=== PATIENT | male | born 1975 | race Two or more races ===

== ENCOUNTER 2019-12-30 18:26 | Emergency (ER) | payer OTHER ==
[2019-12-30] MEDS ORDERED: ASPIRIN 81 MG TABLET, CHEWABLE PO ONE (19:15)
--- NOTE | 2019-12-30 19:18 | ER Document Report ---
ED Medical Screen (RME) - General Chief Complaint: Chest Pain Stated Complaint: CHEST PAIN Time Seen by Provider: 12/30/19 19:15 Primary Care Provider: RANJIT CHAHAL MD [Primary Care Provider] - Follow up as needed Mode of Arrival: Ambulatory Information source: Patient Notes: 44-year-old male presented to ED for complaint of chest pain that does not radiate for a week and a half. He states he has been monitoring his blood pressure. Blood pressures have not looked that bad that he showed me. He states it is a pressure pain in his chest. He states his made him come to the ED or he would not of come in at this time. He denies any history of any cardiac problems. He states he gets headaches and lightheaded with the chest pain. He is alert oriented respirations regular and unlabored speaking in full sentences at this time. I have greeted and performed a rapid initial assessment of this patient. A comprehensive ED assessment and evaluation of the patient, analysis of test results and completion of medical decision making process will be conducted by an additional ED providers. - Related Data Allergies/Adverse Reactions: No Known Allergies Allergy (Verified 12/30/19 19:01) Past Medical History - Social History Frequency of alcohol use: None Drug Abuse: None Physical Exam - Vital signs Vitals: Temp Pulse Resp BP Pulse Ox 98.4 F 80 18 149/89 H 96 12/30/19 18:40 12/30/19 18:40 12/30/19 18:40 12/30/19 18:40 12/30/19 18:40 Course - Vital Signs Vital signs: Temp Pulse Resp BP Pulse Ox 98.4 F 80 18 149/89 H 96 12/30/19 19:01 12/30/19 18:40 12/30/19 18:40 12/30/19 18:40 12/30/19 18:40 Doctor's Discharge - Discharge Referrals: RANJIT CHAHAL MD [Primary Care Provider] - Follow up as needed
--- NOTE | 2019-12-30 19:34 | EKG REPORT ---
SEVERITY:- ABNORMAL ECG - SINUS RHYTHM PROBABLE LEFT VENTRICULAR HYPERTROPHY : Confirmed by: Tono Zamora MD 30-Dec-2019 19:33:22
--- NOTE | 2019-12-30 19:40 | RADIOLOGY REPORT (SQ) ---
EXAM DESCRIPTION: CHEST 2 VIEWS IMAGES COMPLETED DATE/TIME: 12/30/2019 7:32 pm REASON FOR STUDY: chest pain COMPARISON: None. EXAM PARAMETERS: NUMBER OF VIEWS: two views TECHNIQUE: Digital Frontal and Lateral radiographic views of the chest acquired. RADIATION DOSE: NA LIMITATIONS: none FINDINGS: LUNGS AND PLEURA: No opacities, masses or pneumothorax. No pleural effusion. MEDIASTINUM AND HILAR STRUCTURES: No masses or contour abnormalities. HEART AND VASCULAR STRUCTURES: Heart normal size. No evidence for failure. BONES: No acute findings. HARDWARE: None in the chest. OTHER: No other significant finding. IMPRESSION: NO ACUTE RADIOGRAPHIC FINDING IN THE CHEST. TECHNICAL DOCUMENTATION: JOB ID: [id number] 2010 [employer]- All Rights Reserved Reading location - IP/workstation name: [email or web address]
[2019-12-30 19:41] LABS: ABSOLUTE BASOPHILS # (AUTO) 0.2 10^3/uL (0.0-0.2); ABSOLUTE EOSINOPHILS # (AUTO) 0.3 10^3/uL (0.0-0.6); ABSOLUTE LYMPHOCYTES (AUTO) 4.9 10^3/uL (0.5-4.7); ABSOLUTE NEUT (AUTO) 7.6 10^3/uL (1.7-8.2); BASOPHILS % (AUTO) 1.1 % (0-2); EOSINOPHILS % (AUTO) 2.3 % (0-6); HEMATOCRIT 49.5 % (37.9-51.0); HEMOGLOBIN 16.8 g/dL (13.5-17.0); LYMPHOCYTES % (AUTO) 35.2 % (13-45); MEAN CORPUSCULAR HEMOGLOBIN 29.8 pg (27.0-33.4); MEAN CORPUSCULAR VOLUME 88 fl (80-97); MONOCYTES % (AUTO) 7.2 % (3-13); PLATELET COUNT 281 10^3/uL (150-450); RED BLOOD COUNT 5.66 10^6/uL (4.35-5.55); RED CELL DISTRIBUTION WIDTH 13.7 % (11.5-14.0); SEGMENTED NEUTROPHILS % (AUTO) 54.2 % (42-78); TOTAL CELLS COUNTED % (AUTO) 100 %
[2019-12-30 20:13] LABS: NT PRO BNP 18 pg/mL (<125)
[2019-12-30 20:14] LABS: TROPONIN I < 0.012 ng/mL
[2019-12-30 21:30] LABS: ALKALINE PHOSPHATASE 98 U/L (38-126); ANION GAP 7 (5-19); ASPARTATE AMINO TRANSFERASE 36 U/L (17-59); BILIRUBIN,TOTAL 0.3 mg/dL (0.2-1.3); BLOOD UREA NITROGEN 17 mg/dL (7-20); CARBON DIOXIDE 29 mmol/L (22-30); CHLORIDE 102 mmol/L (98-107); GLUCOSE 90 mg/dL (75-110); POTASSIUM 5.2 mmol/L (3.6-5.0); TOTAL PROTEIN 7.1 g/dL (6.3-8.2)
--- NOTE | 2019-12-30 21:36 | ER Document Report ---
ED General - General Chief Complaint: Chest Pain Stated Complaint: CHEST PAIN Time Seen by Provider: 12/30/19 19:15 Primary Care Provider: RANJIT CHAHAL MD [ACTIVE STAFF] - Follow up as needed Mode of Arrival: Ambulatory - HPI Notes: Patient is a 44-year-old male who presents to the emergency department for evaluation. He states his been going on intermittently for over a week. He states today it started while he was looking up something at work. He described it as a tightness. It substernal. It does not radiate. He states occasionally he feels like he has some difficulty swallowing with it. He denies any associated shortness of breath, nausea, diaphoresis, near syncope. He states that he started to feel tired with it at work. He decided to leave and drive home. He got home, the ride took about an hour, and took a nap. He states the pain was present when he went to sleep, and the pain was present when he woke up. He states it had eased somewhat. He denies any pain at this time. He states his pain is made worse when he is "angry or upset" and only time seems to make it better. - Related Data Allergies/Adverse Reactions: No Known Allergies Allergy (Verified 12/30/19 19:01) Home Medications: Synthroid Past Medical History - General Information source: Patient - Social History Smoking Status: Current Every Day Smoker Frequency of alcohol use: None Drug Abuse: None Family History: CAD - Not premature, Thyroid Disfunction Patient has homicidal ideation: No Endocrine Medical History: Reports: Hx Hypothyroidism Review of Systems - Review of Systems Constitutional: See HPI Cardiovascular: See HPI -: Yes All other systems reviewed and negative Physical Exam - Vital signs Vitals: Temp Pulse Resp BP Pulse Ox 98.4 F 80 18 149/89 H 96 12/30/19 18:40 12/30/19 18:40 12/30/19 18:40 12/30/19 18:40 12/30/19 18:40 - Notes Notes: This is a pleasant 44-year-old male appears his stated age, no acute distress. Vital signs reviewed, please refer to chart. Head is normocephalic, atraumatic. Pupils equal round, reactive to light. Neck is supple without meningismus. Heart is regular rate and rhythm. Lungs are clear to auscultation bilaterally. Abdomen is soft, nontender, normoactive bowel sounds throughout. Extremities without cyanosis, clubbing. Posterior calves are nontender. Peripheral pulses are equal. Skin is warm and dry. Patient is awake, alert, neurological exam is nonfocal. Course - Re-evaluation Re-evalutation: 12/30/19 21:34 Patient presents to the emergency department for evaluation of chest pain. It certainly is not typical anginal pain, and that it is not brought about by exertion or relieved by rest. The patient does, however, have risk factors. He is a smoker, is overweight, and there is a family history, although it is not premature. Still awaiting metabolic panel, but his cardiac enzymes are negative. His EKG fails to show any significant signs of ischemia or infarction. We talked at length about modifying risk factors. We talked about further outpatient testing being necessary to rule out the presence of coronary artery disease. The patient voiced understanding. He has plans to quit smoking. He will follow-up with his primary care provider, also has a scheduled appointment with PCP next week. He understands with worsening he should return. Otherwise if electrolytes revealed no significant abnormalities, patient will be discharged. He is to return to the ED with worsening. 12/30/19 22:45 Patient's chest pain did not return. His potassium was noted to be slightly high, patient was told of this. We talked about limiting potassium intake and having this rechecked with primary care. He was amenable to this plan. Otherwise he is to return to the ED with worsening or new concerning symptoms of any sort. - Vital Signs Vital signs: Temp Pulse Resp BP Pulse Ox 98.4 F 80 18 149/89 H 96 12/30/19 19:01 12/30/19 18:40 12/30/19 18:40 12/30/19 18:40 12/30/19 18:40 - Laboratory Result Diagrams: 12/30/19 19:28 12/30/19 19:48 Laboratory results interpreted by me: 12/30/19 12/30/19 19:28 19:48 WBC 14.0 H RBC 5.66 H Absolute Lymphs (auto) 4.9 H Potassium 5.2 H - Diagnostic Test Radiology reviewed: Reports reviewed Radiology results interpreted by me: 12/30/19 21:36 Chest X-Ray 12/30/19 19:16 IMPRESSION: NO ACUTE RADIOGRAPHIC FINDING IN THE CHEST. - EKG Interpretation by Me Additional EKG results interpreted by me: 12/30/19 21:36 Sinus rhythm with a rate of 83 bpm. Normal axis and intervals. No acute ST changes concerning for ischemia or infarction. No old studies available for comparison. Discharge - Discharge Clinical Impression: Hyperkalemia Chest pain Qualifiers: Chest pain type: unspecified Qualified Code(s): R07.9 - Chest pain, unspecified Condition: Stable Disposition: HOME, SELF-CARE Instructions: Chest Pain of Unclear Cause ([facility]) Additional Instructions: No clear cause was found for your chest pain today. Your potassium is mildly elevated. Please avoid high potassium foods, including citrus, bananas, apricots. Follow-up with your primary care provider next week. You should discuss risk factor modification and possible further testing. If you develop worsening or new concerning symptoms of any sort, please return immediately to the emergency department for evaluation. Referrals: RANJIT CHAHAL MD [ACTIVE STAFF] - Follow up as needed
[2019-12-30 23:05] VITALS: BP 132/86
== END 2019-12-30 23:05 | disposition home or self-care (01) ==
LOC: ER 18:26
DX: R07.89 Other chest pain (principal); E87.5 Hyperkalemia; R53.83 Other fatigue; E66.3 Overweight; F17.200 Nicotine dependence, unspecified, uncomplicated; E03.9 Hypothyroidism, unspecified; Z79.899 Other long term (current) drug therapy; Z82.49 Family history of ischemic heart disease and other diseases of the circulatory system
CPT/HCPCS: 36415; 71046; 80053; 83735; 83880; 84484; 85025; 93005; 93010; 99285